=== PATIENT | male | born 1985 | race African-American/Black ===

== ENCOUNTER 2018-04-20 14:22 | Inpatient (IN) ==
[2018-04-20] MEDS ORDERED: PHENOBARBITAL IV PRN (18:17)
[2018-04-20] MEDS ORDERED: ATARAX PO PRN (18:17)
[2018-04-20] MEDS ORDERED: MOTRIN PO PRN (18:17)
[2018-04-20] MEDS ORDERED: DESYREL PO PRN (18:17)
[2018-04-20] MEDS ORDERED: SALINE LOCK IV FLUID XX ONE (18:17)
[2018-04-20] MEDS ORDERED: TUBERSOL ID ONE (18:17)
[2018-04-20] MEDS ORDERED: BENTYL PO PRN (18:17)
[2018-04-20] MEDS ORDERED: ZOFRAN IV PRN (18:17)
[2018-04-20] MEDS ORDERED: TYLENOL PO PRN (18:17)
[2018-04-20] MEDS ORDERED: MAALOX PLUS LIQUID PO PRN (18:17)
[2018-04-20] MEDS ORDERED: SENOKOT PO PRN (18:17)
[2018-04-20] MEDS ORDERED: ZOFRAN ODT PO PRN (18:17)
[2018-04-20] MEDS ORDERED: NICOTINE GUM BUCCAL PRN (18:17)
[2018-04-20] MEDS ORDERED: IMODIUM PO PRN (18:17)
[2018-04-20] MEDS ORDERED: DULCOLAX PR PRN (18:17)
[2018-04-20] MEDS ORDERED: D5W 1,000 ML IV PRN (18:17)
[2018-04-20] MEDS ORDERED: M.V.I.-12 10 ML, FOLIC ACID 1 MG, MAGNESIUM SULFATE 1 GM, THIAMINE 100 MG in NS 1,000 ML IV ONE (19:00)
[2018-04-20 19:02] LABS: AMYLASE 87 U/L (20-200); LIPASE 19 U/L (13-60)
[2018-04-20 19:04] LABS: AGAP 10; ALBUMIN 3.9 g/dL (3.5-5.0); ALKALINE PHOSPHATASE 52 U/L (32-122); BUN 14 mg/dL (8-22); CALCIUM 9.3 mg/dL (8.8-10.2); CHLORIDE 104 mmol/L (98-107); COSMO 285; ESTIMATED GFR > 60; GLUCOSE 91 mg/dL (70-104); GOT 11 U/L (10-34); GPT 8 U/L (10-44); POTASSIUM 4.3 mmol/L (3.5-5.1); SODIUM 143 mmol/L (136-145); TCO2 29 mmol/L (25-35); TOTAL PROTEIN 7.1 g/dL (6.3-8.3)
[2018-04-20 19:08] LABS: INR 0.98; PROTIME 13.5 Seconds (11.0-16.0)
[2018-04-20] MEDS: LIBRIUM PO SCH ×2 (19:38→23:46)
[2018-04-20 20:45] LABS: HEMATOCRIT 40.7 % (42.0-52.0); HEMOGLOBIN 13.4 g/dL (14.0-18.0); MCH 29.8 PG (27-31); MCHC 32.9 g/dL (33-37); MCV 90.6 FL (81-99); MPV 10.8 FL (7.4-10.4); RBC 4.49 XMIL (4.7-6.1); RDW 12.6 % (11.5-14.5); WBC 5.59 X1000 (4.8-10.8)
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
[2018-04-21] MEDS: PROTONIX PO SCH (06:23)
[2018-04-21] MEDS: LIBRIUM PO SCH ×3 (06:23→18:56)
[2018-04-21] MEDS: VITAMIN B-1 PO SCH (11:04)
[2018-04-21] MEDS: FOLIC ACID PO SCH (11:04)
[2018-04-21] MEDS: THERA M PLUS PO SCH (11:04)
[2018-04-21] MEDS: NICODERM PATCH TD PRN (11:19)
[2018-04-21 20:19] LABS: URINE SOURCE VOIDED
[2018-04-21 20:22] LABS: BILIRUBIN URINE NEGATIVE (NEGATIVE); BLOOD URINE NEGATIVE (NEGATIVE); CLARITY CLEAR (CLEAR); COLOR YELLOW; GLUCOSE URINE NEGATIVE (NEGATIVE); KETONE URINE NEGATIVE (NEGATIVE); LEUKOCYTES URINE NEGATIVE (NEGATIVE); NITRITE URINE NEGATIVE (NEGATIVE); PROTEIN URINE NEGATIVE (NEGATIVE); UROBILINOGEN URINE NORMAL
[2018-04-21 20:35] LABS: UR AMPHETAMINES QUAL NONE DETECTED (NONE DETECT); UR BARBITUATES QUAL NONE DETECTED (NONE DETECT); UR BENZODIAZEPIN QUAL PRESUMPTIVE POSITIVE (NONE DETECT); UR CANNABINOIDS QUAL NONE DETECTED (NONE DETECT); UR COCAINE QUAL NONE DETECTED (NONE DETECT); UR METHADONE QUAL NONE DETECTED (NONE DETECT); UR METHAMPHETAMINE QUAL NONE DETECTED (NONE DETECT); UR OPIATES QUAL NONE DETECTED (NONE DETECT); UR OXYCODONE QUAL NONE DETECTED (NONE DETECT); UR PCP QUAL NONE DETECTED (NONE DETECT); UR PROPOXYPHENE QUAL NONE DETECTED (NONE DETECT); UR TCA QUAL NONE DETECTED (NONE DETECT)
[2018-04-22] MEDS: LIBRIUM PO SCH ×4 (00:13→18:22)
--- NOTE | 2018-04-22 00:57 | PROGRESS NOTE ---
DATE: 04/21/2018 SUBJECTIVE: Patient this morning has no new complaints. States overall he is feeling okay. Unfortunately, this afternoon he apparently took an unspecified amount of his remeron and depakote. PHYSICAL EXAMINATION: Vital Signs: Reviewed. Temperature 97.8 degrees, pulse 79, respiratory 20, BP 129/74. General: Patient is currently in no respiratory distress. HEENT: Normocephalic. Neck: Supple. CARDIOVASCULAR: Regular rate. Chest: Clear. Abdomen: Soft. Extremities: Moves all extremities. ASSESSMENT: 1. Intentional drug overdose of unspecified amount of pills. 2. Chronic alcoholism. 3. Traumatic brain injury. 4. Poor hearing. 5. Others. PLAN: We will move to the ICU, place him on telemetry and we will follow. cc: Korey Jung MD MTDD
[2018-04-22] MEDS: PROTONIX PO SCH (09:45)
[2018-04-22] MEDS: FOLIC ACID PO SCH (09:46)
[2018-04-22] MEDS: VITAMIN B-1 PO SCH (09:46)
[2018-04-22] MEDS: THERA M PLUS PO SCH (09:46)
[2018-04-22] MEDS: SEROQUEL PO PRN (20:43)
[2018-04-22] MEDS: ROBAXIN PO PRN (21:34)
[2018-04-23] MEDS: LIBRIUM PO SCH ×4 (00:23→20:30)
--- NOTE | 2018-04-23 01:20 | PROGRESS NOTE ---
DATE: 04/22/2018 SUBJECTIVE: Patient this morning has no new complaints. He did apparently take his home medications in unknown quantities last night. PHYSICAL EXAMINATION: Vital Signs: Reviewed. Temperature 97.9 degrees, pulse 82, respiratory 20, BP 92/59. General: The patient is somnolent, but stable this morning. HEENT: Normocephalic. Neck: Supple. Cardiovascular: Regular rate. Chest: Clear. Abdomen: Soft. Extremities: Moves all extremities. ASSESSMENT: 1. Nausea, vomiting. 2. Abdominal pain. 3. Myalgias. 4. Paresthesias. 5. Alcohol abuse withdrawal. PLAN: We will continue patient in the hospital. Continue to wean Librium. Further orders as needed. cc: Korey Jung MD
[2018-04-23] MEDS: PROTONIX PO SCH (07:15)
[2018-04-23] MEDS ORDERED: LIBRIUM PO SCH (07:30)
[2018-04-23] MEDS: VITAMIN B-1 PO SCH (10:57)
[2018-04-23] MEDS: THERA M PLUS PO SCH (10:57)
[2018-04-23] MEDS: FOLIC ACID PO SCH (10:57)
[2018-04-23] MEDS: NICODERM PATCH TD PRN (20:30)
[2018-04-23] MEDS: SEROQUEL PO PRN (22:31)
[2018-04-23] MEDS: ROBAXIN PO PRN (22:31)
--- NOTE | 2018-04-24 03:49 | PROGRESS NOTE ---
DATE: 04/23/2018 SUBJECTIVE: Patient this morning is very somnolent. He does arouse, but he does not answer questions appropriately. PHYSICAL EXAMINATION: Vital Signs: Temperature 97.7 degrees, pulse 90, respiratory 20, BP 107/61. General: Patient is arousable. He is still somewhat confused. Does not answer questions appropriately. He is in no respiratory distress. HEENT: Normocephalic. Neck: Supple. Cardiovascular: Regular rate. Chest: Clear. Abdomen: Soft, nondistended. Extremities: Moves all extremities. ASSESSMENT: 1. Nausea and vomiting. 2. Abdominal pain. 3. Tremors. 4. Myalgias. 5. Chronic alcohol abuse, withdrawal and stabilization. 6. Chronic polysubstance abuse. PLAN: We will continue patient in the hospital. We will wean Librium. Continue to encourage oral intake. Further orders as needed. cc: Korey Jung MD
[2018-04-24] MEDS: PROTONIX PO SCH (06:04)
[2018-04-24] MEDS: LIBRIUM PO SCH (06:04)
[2018-04-24] MEDS: FOLIC ACID PO SCH (08:40)
[2018-04-24] MEDS: THERA M PLUS PO SCH (08:40)
[2018-04-24] MEDS: VITAMIN B-1 PO SCH (08:40)
[2018-04-24 17:39] VITALS: BP 114/64
[2018-04-24] MEDS ORDERED: LIBRIUM PO SCH (18:00)
[2018-04-24] MEDS ORDERED: DEPAKOTE ER PO SCH (21:00)
[2018-04-24] MEDS ORDERED: REMERON PO SCH (21:00)
--- NOTE | 2018-04-25 23:11 | DISCHARGE SUMMARY ---
ADMISSION DATE: 04/20/2018 DISCHARGE DATE: 04/24/2018 DISCHARGE DIAGNOSIS: 1. Nausea, vomiting. 2. Abdominal pain. 3. Tremors. 4. Myalgias. 5. Alcohol abuse, withdrawal and stabilization. 6. Polysubstance use and abuse. 7. Chronic hearing impairment. CONSULTATIONS: None. PROCEDURES: None. BRIEF HOSPITAL COURSE: The patient is 32-year-old male who presented to the hospital secondary to the desire for stabilization of his alcohol withdrawal symptoms. The patient was admitted, placed on high-dose Librium taper. He seemed to be improving and then he became more somnolent and drowsy. Upon further evaluation, the staff noted that he had some pill bottles in his room which is felt to have taken. He therefore was moved to the ICU to monitor for withdrawal as well as to help prevent further ingestion of medications. We continued to wean his Librium. On discharge, patient is awake, alert. He is in no distress and therefore he will be discharged home. DISPOSITION: Patient will be discharged home with a Librium taper. We attempted medication assisted therapy with naltrexone, but the patient declined. TIME SPENT: Greater than 30 minutes was spent in total care. Discussed with patient he needs outpatient life counseling as well as drug counseling. cc: Korey Jung MD
== END 2018-04-24 18:04 | disposition home or self-care (01) | DRG 897 ==
LOC: P.DIRADM 14:22 → P.MEDSURG 14:35 → P.ICU 04-21 23:44
PROVIDERS: ADMIT Family Medicine; ATTEND Family Medicine
CPT/HCPCS: 80053; 80104; 80301; 80305; 80307; 80320; 82055; 82150; 83690; 85027; 85610; A9270; G0431; G0434; G0477; G0480; G6040; J3411; J3475; J7030